=== PATIENT | female | born 2000 | race Caucasian/White ===

== ENCOUNTER 2020-03-07 20:08 | Emergency (ER) | payer OTHER ==
[2020-03-07] MEDS ORDERED: Doxycycline 100 MG Cap PO STA (20:57)
--- NOTE | 2020-03-07 21:05 | EDM.PDOC ---
ED HPI GENERAL MEDICAL PROBLEM - General Chief Complaint: ENT Problem Stated Complaint: NOSE PROBLEM Time Seen by Provider: 03/07/20 20:35 Source of Information: Reports: Patient History Limitations: Reports: No Limitations - History of Present Illness INITIAL COMMENTS - FREE TEXT/NARRATIVE: Ms. Lind is a very pleasant 19-year-old woman who states that she had to wear an N-95 respirator for work for 12 hours each on 03/04/2020, 03/05/2020, and 03/06/2020. She then developed redness to her distal nose 2 days ago, then small purulent-appearing blisters within the erythema this morning. No recent fever. No prior similar symptoms. The patient has not previously worn an N-95 respirator. The patient states that she has been treating her nose with a face wash and lotion, but no benzyl peroxide or antibiotics. The patient states that she was seen by telemedicine around 19:00, who recommended that she be seen in person. Here in the ED, the patient initial BP is found to be mildly elevated at 145/84, otherwise, she is hemodynamically stable, afebrile, saturating 100% on room air. Other than the nose issue, the patient denies having a recent fever, chills, sore throat, ear pain, nasal or sinus congestion, cough, dyspnea, chest pain, palpitations, nausea, vomiting, constipation, diarrhea, abdominal pain, urinary symptoms, recent weight gain or weight loss, recent bloody bowel movements or black bowel movements, recent joint aches, headaches, or rashes. The patient does not have a PCP. 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 Mónica Bingham. Nose Pain Score (Numeric/FACES): 6 - Related Data Allergies Allergy/AdvReac Type Severity Reaction Status Date / Time No Known Allergies Allergy Verified 03/07/20 20:26 Home Meds: Home Meds Doxycycline [Vibra-Tabs] 1 tab PO Q12HR #14 tab 03/07/20 [Rx] Ethinyl Estradiol/Drospirenone [[place] 28] 1 tab PO DAILY 03/07/20 [History] Past Medical History - Past Surgical History HEENT Surgical History: Reports: Oral Surgery (wisdom teeth extraction) Musculoskeletal Surgical History: Reports: Arthroscopic Knee (left, x 2) Social & Family History - Family History Family Medical History: Noncontributory - Tobacco Use Smoking Status *Q: Never Smoker Second Hand Smoke Exposure: No - Caffeine Use Caffeine Use: Reports: Coffee - Alcohol Use Alcohol Use History: Yes Alcohol Use Frequency: Socially - Recreational Drug Use Recreational Drug Use: No - Living Situation & Occupation Living situation: Reports: Single, Alone Occupation: Employed ([employer]) ED ROS GENERAL - Review of Systems Review Of Systems: Comprehensive ROS is negative, except as noted in HPI. ED EXAM, SKIN/RASH Exam: See Below Exam Limited By: No Limitations General Appearance: Alert, WD/WN, No Apparent Distress Eye Exam: Bilateral Eye: EOMI, Normal Inspection Ears: Normal External Exam, Hearing Grossly Normal Nose: Other (Approximately 1 cm diameter grouping of small pustules on the bridge of the patient's nose, with surrounding erythema and calor. No appreciable swelling.) Throat/Mouth: Normal Inspection, Normal Lips, Normal Voice, No Airway Compromise Head: Atraumatic, Normocephalic Course - Vital Signs Last Recorded V/S: Last Vital Signs Temp 36.4 C 03/07/20 20:22 Pulse 100 03/07/20 20:22 Resp 18 03/07/20 20:22 BP 145/84 H 03/07/20 20:22 Pulse Ox 100 03/07/20 20:22 - Orders/Labs/Meds Meds: Medications Discontinued Medications Generic Name Dose Route Start Last Admin Trade Name Ronyq PRN Reason Stop Dose Admin Doxycycline Hyclate 100 mg 03/07/20 20:57 03/07/20 21:06 Vibramycin PO 03/07/20 20:58 100 mg ONETIME STA Administration - Re-Assessments/Exams Free Text/Narrative Re-Assessment/Exam: 03/07/20 20:58 As above, the patient wore an N-95 respirator at work this past Friday, Friday, and Friday, for 12 hours each day then developed redness to the bridge of her nose, followed by acne-appearing blisters with surrounding erythema and calor this morning. She appears to have cellulitis. 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 She should keep her nose clean with ordinary soap and water. 03/07/20 21:25 Notified that the patient spoke to her mother on the telephone, and that her mother asked to her to request testing for MRSA colonization. I had already discussed with the patient that testing for MRSA colonization is not necessary, because I am prescribing doxycycline, which treats both MRSA as well as MSSA. Test results will not change my management, and is therefore not medically indicated. Further, I am concerned that if her MRSA by PCR returns positive, that that will be on her chart forever, and may cause confusion or treatment complications down the road. Nevertheless, I am told that the patient is insisting that she be tested. I have therefore ordered an MRSA by PCR screen. 03/07/20 21:31 Notified that the patient changed her mind, and no longer wants to be tested. Departure - Departure Time of Disposition: 21:01 Disposition: Home, Self-Care 01 Condition: Good Clinical Impression: Cellulitis of external nose - Discharge Information *PRESCRIPTION DRUG MONITORING PROGRAM REVIEWED*: Not Applicable *COPY OF PRESCRIPTION DRUG MONITORING REPORT IN PATIENT JIM: Not Applicable Prescriptions: Doxycycline [Vibra-Tabs] 1 tab PO Q12HR #14 tab Instructions: Cellulitis, Adult, [id number] Referrals: PCP,None [Primary Care Provider] - Mónica Bingham MD [Physician] - Forms: ED Department Discharge Additional Instructions: You were seen in the emergency room after developing a grouping of pustules on your external nose, surrounded by redness, after wearing an N-95 respirator for 3 days. Based on your history and physical examination, you are most likely suffering from a cellulitis of your nose. We recommend that you keep your nose clean with ordinary soap and water. You may also apply benzoyl peroxide ointment, however, we recommend that you not apply a topical antibiotic ointment or cream. You have been started on the antibiotic doxycycline, and a prescription for doxycycline has been sent to the [facility], located at [address] [place] [address]. Take 1 tablet of doxycycline every 12 hours, starting tomorrow morning, 03/08/2020, as prescribed. Finish the entire prescription unless told otherwise by your doctor. Be aware that when you are on an antibiotic like doxycycline, your control pills may be less effective, therefore you should use a second form of contraceptive for the entire time that you are on the doxycycline, plu s a few days afterwards. Doxycycline may cause you to have some breakthrough bleeding, as well. Avoid sunlight when you are on doxycycline. If any other problems, please do not hesitate to return to the ER. Sepsis Event Note (ED) - Evaluation Sepsis Screening Result: No Definite Risk - Focused Exam Vital Signs: Vital Signs Temp Pulse Resp BP Pulse Ox 03/07/20 20:22 36.4 C 100 18 145/84 H 100
== END 2020-03-07 21:35 | disposition home or self-care (01) ==
LOC: JD.ED 20:08
DX: J34.0 Abscess, furuncle and carbuncle of nose (principal)
CPT/HCPCS: 99283; A9270